=== PATIENT | male | born 1975 | race Caucasian/White ===

== ENCOUNTER 2022-07-20 12:39 | Emergency (ER) | payer OTHER ==
[~2022-07-20] VITALS: Ht 172.7 cm; Wt 74.8 kg
[2022-07-20 12:47] VITALS: BP 146/95
--- NOTE | 2022-07-20 12:56 | NUR ---
47 Y/O MALE BIB SELF C/O LEFT SIDED CHEST PAIN NON RADIATING PRESSURE TYPE PAIN X2 DAYS, SENT FROM FOR ABNORMAL EKG. TOOK ASPIRIN 325 BEFORE PRESENTATION WITH DECREASE IN PAIN SENSATION, PAIN NOW 12/24. GUERA REED, GIANNA, ARELLANO PM: HTN NKA Addendum: 07/20/22 at 1306 by [email or web address] ON [employer]
--- NOTE | 2022-07-20 13:25 | NUR ---
LAB AT BEDSIDE
--- NOTE | 2022-07-20 13:31 | NUR ---
PT TRANSFERRED TO BED 2
[2022-07-20 13:38] LABS: BASOPHILS % (AUTO) 0.5 % (0.0-2.0); EOSINOPHILS # (AUTO) 0.4 K/uL (0-0.4); EOSINOPHILS % (AUTO) 4.8 % (0.0-4.0); HEMATOCRIT 46.3 % (36-52); HEMOGLOBIN 15.4 g/dL (12.0-18.0); LYMPHOCYTES # (AUTO) 1.8 K/uL (2.0-11.5); LYMPHOCYTES % (AUTO) 21.4 % (20.5-51.1); MEAN CORPUSCULAR HEMOGLOBIN 30 pg (27-31); MEAN CORPUSCULAR HGB CONC 33 g/dL (33-37); MEAN CORPUSCULAR VOLUME 90.2 fL (80-94); MONOCYTES # (AUTO) 0.7 K/uL (0.8-1.0); MONOCYTES % (AUTO) 8.4 % (1.7-9.3); NEUTROPHILS # (AUTO) 5.5 K/uL (1.8-7.7); NEUTROPHILS % (AUTO) 64.9 % (42.2-75.2); PLATELET COUNT (AUTO) 219 K/uL (140-450); RED BLOOD CELL COUNT(AUTO) 5.13 MIL/uL (4.20-6.10); RED CELL DISTRIBUTION WIDTH 13.4 % (11.6-13.7); WHITE BLOOD COUNT (AUTO) 8.5 K/uL (4.8-10.8)
--- NOTE | 2022-07-20 14:03 | NUR ---
DR BENAVIDEZ AT BEDSIDE FOR EVAL
[2022-07-20 14:40] LABS: ANION GAP 13.6 (8-16); ASPARTATE AMINOTRANSFERASE 19 U/L (15-37); CARBON DIOXIDE 26.6 mmol/L (21-32); CHLORIDE 105 mmol/L (98-107); CREATININE 0.8 mg/dL (0.6-1.3); GFR ARICAN-AMERICAN 134 mL/min (>90); GLUCOSE 86 mg/dL (74-106); LIPASE 72 U/L (73-393); POTASSIUM 4.2 mmol/L (3.5-5.1); SODIUM SERUM 141 mmol/L (136-145); TOTAL BILIRUBIN 0.4 mg/dL (0.0-1.0); UREA NITROGEN, BLOOD 10 mg/dL (7-18)
[2022-07-20] MEDS ORDERED: ASPI-1822 PO (14:44)
--- NOTE | 2022-07-20 14:49 | NUR ---
DR BENAVIDEZ AT BEDSIDE FOR REEVAL
[2022-07-20 15:02] VITALS: BP 130/73
--- NOTE | 2022-07-20 15:03 | NUR ---
Patient discharged with v/s stable. Written and verbal after care instructions ABOUT NON-SPECIFIC CHEST PAIN given and explained. Patient alert, oriented and verbalized understanding of instructions. Ambulatory with steady gait. All questions addressed prior to discharge. ID band removed. Patient advised to follow up with PMD. Rx of ASPIRIN CHEWABLE given. Patient educated on indication of medication including possible reaction and side effects. Opportunity to ask questions provided and answered.
== END 2022-07-20 15:02 | disposition home or self-care (01) ==
LOC: MED 12:39
DX: I20.8 Other forms of angina pectoris (principal); I10 Essential (primary) hypertension; Z79.899 Other long term (current) drug therapy
CPT/HCPCS: 36415; 71045; 80053; 83690; 84484; 85025; 93005; 99285; Q0092